=== PATIENT | female | born 1960 | race Caucasian/White ===

== ENCOUNTER 2024-07-18 06:17 | Day surgery (SDC) | payer BC, SELFPAY | END 2024-07-18 09:55 | disposition home or self-care (01) | LOC: GI 06:17 | PROVIDERS: ATTENDING PHYSICIAN Internal Medicine Gastroenterology | DX: Z12.11 Encounter for screening for malignant neoplasm of colon (principal); K57.30 Diverticulosis of large intestine without perforation or abscess without bleeding; K64.8 Other hemorrhoids; Z83.719 Family history of colon polyps, unspecified; I85.00 Esophageal varices without bleeding; K31.89 Other diseases of stomach and duodenum | CPT/HCPCS: 43239; G0105; 88305 ==